=== PATIENT | female | born 1995 | race Caucasian/White ===

== ENCOUNTER 2016-11-15 21:19 | Emergency (ER) | payer OTHER ==
[2016-11-15 21:35] VITALS: BP 115/69
--- NOTE | 2016-11-15 21:55 | UC ---
FLU HPI - HPI Summary HPI Summary: cough, fever body aches, nasal congestion, did not get flu vaccine - History of Current Complaint Chief Complaint: UCGeneralIllness Stated Complaint: FLU SXS Time Seen by Provider: 11/15/16 21:28 Hx Obtained From: Patient Hx Last Menstrual Period: 11/13/16 ?: No Onset/Duration: Sudden Onset, Lasting Days - 5, Still Present Severity Currently: Moderate Severity Initially: Mild Pain Intensity: 4 Pain Scale Used: 0-10 Numeric Associated Signs & Symptoms: Positive: Fever, Myalgia, Cough, Sore Throat, Nasal Congestion, Headache Related Hx: Possible Flu/Infectious Exposure - Allergy/Home Medications Allergies/Adverse Reactions: Allergies Allergy/AdvReac Type Severity Reaction Status Date / Time No Known Allergies Allergy Verified 11/15/16 21:35 Home Medications: Home Medications Acetaminophen 1,000 mg PO Q4HR PRN 11/15/16 [History Confirmed 11/15/16] Ibuprofen [Ibuprofen 200 MG] 600 mg PO Q6HR PRN 11/15/16 [History Confirmed 08/21] Levonorgestrel & Eth Estradiol [Falmina 0.1-20 mg-Mcg] 1 tab PO DAILY 11/15/16 [ History Confirmed 11/15/16] PMH/Surg Hx/FS Hx/Imm Hx Previously Healthy: Yes - Surgical History Surgical History: None - Family History Known Family History: Positive: None Family History: no reported cardiovascular issues in family lineage - Social History Occupation: Employed Part-time, Student Lives: Alone Alcohol Use: Occasionally Substance Use Type: None Smoking Status (MU): Never Smoked Tobacco Review of Systems Constitutional: Fever, Chills, Fatigue Skin: Negative Eyes: Negative ENT: Sore Throat, Ear Ache, Nasal Discharge Respiratory: Cough Cardiovascular: Negative Gastrointestinal: Negative Genitourinary: Negative Motor: Negative Neurovascular: Negative Musculoskeletal: Negative Neurological: Negative Psychological: Negative All Other Systems Reviewed And Are Negative: Yes Physical Exam Triage Information Reviewed: Yes Appearance: Well-Nourished, Ill-Appearing - mild, Pain Distress - mild Vital Signs: Initial Vital Signs Temp 98.8 F 11/15/16 21:32 Pulse 75 11/15/16 21:32 Resp 16 11/15/16 21:32 BP 115/69 11/15/16 21:32 Pulse Ox 100 02/11/17 21:32 Vital Signs Reviewed: Yes Eye Exam: Normal Eyes: Positive: Conjunctiva Clear ENT Exam: Normal ENT: Positive: Normal ENT inspection, Hearing grossly normal, Pharynx normal, Nasal congestion, Nasal drainage, TMs normal. Negative: Tonsillar swelling, Tonsillar exudate, Trismus, Muffled/hoarse voice Dental Exam: Normal Neck exam: Normal Neck: Positive: Supple, Nontender, No Lymphadenopathy Respiratory Exam: Normal Respiratory: Positive: Chest non-tender, Lungs clear, Normal breath sounds, No respiratory distress, No accessory muscle use Cardiovascular Exam: Normal Cardiovascular: Positive: RRR, No Murmur, Pulses Normal, Brisk Capillary Refill Musculoskeletal Exam: Normal Musculoskeletal: Positive: Strength Intact, ROM Intact, No Edema Neurological Exam: Normal Neurological: Positive: Alert, Muscle Tone Normal Psychological Exam: Normal Psychological: Positive: Decreased Age Appropriate Behavior Diagnostics - Laboratory Diagnostic Studies Completed/Ordered: influenza A/B (-) Flu Course/Dx - Course Course Of Treatment: Mucinex D, Tylenol, ibuprofen ncrease fluids follow with [facility] re-check prn - Differential Dx/Diagnosis Differential Diagnosis/HQI/PQRI: Influenza, Pneumonia, RSV, Upper Respiratory Infection Provider Diagnoses: URI Discharge - Discharge Plan Condition: Stable Disposition: HOME Prescriptions: Azithromycin TAB* [Zithromax TAB (Z-LISA) 250 mg #6 tabs] 2 tab PO .TODAY, THEN 1 DAILY #1 lisa Patient Education Materials: Upper Respiratory Infection (ED), Azithromycin ( By mouth), Decongestant/Expectorant (By mouth) Additional Instructions: Follow with [facility] 2-3 days
== END 2016-11-15 22:05 | disposition home or self-care (01) ==
LOC: UCCORT 21:19
DX: J06.9 Acute upper respiratory infection, unspecified (principal)
CPT/HCPCS: 87502; 99202; G0463